=== PATIENT | male | born 1960 | race Caucasian/White ===

== ENCOUNTER 2021-04-02 09:13 | Outpatient (CLI) | payer OTHER, SELFPAY ==
--- NOTE | 2021-04-02 09:18 | EST_ITS ---
Patient Info Name: Billy Damon Age: 60 years : 1960 Gender: Male Ht: 68 in Wt: 242 lbs BSA: 2.34 m2 Technical Quality: Good Exam Date: 04/02/2021 10:07 AM [facility]am [facility] Patient Status: Outpatient Admit Date: 04/02/2021 Staff Ordering Physician: Judson Clemons DO Manager Behavior: Luna Goode RDCS Attending Provider: JUDSON CLEMONS DO Referring Physician: Gage OSUNA; Exercise Technologist: Lisa Gonzales RDCS Exercise Physician: Judson Clemons DO Exam Type: CA stress echo Study Info Indications R07.9 - Chest pain, unspecified Treadmill exercise stress echocardiogram is performed. Summary 1. 1. Negative Haider exercise stress test for ischemic ST changes by ECG criteria. 2. 2. Good functional capacity, achieving 10 METs of workload. 3. 3. Hypertensive response to exercise. 4. 4. Appropriate HR response to exercise. 5. 5. Appropriate HR recovery at 1 minute post exercise. 6. 6. Negative stress echocardiogram for ischemia by wall motion analysis. 7. 7. Patient informed of the above results. Stress Echo Findings Left Ventricle Appropriate increase in LV endocardial thickening with systole. Appropriate augmentation of contractility with systole. No wall motion abnormality. Left Ventricle Normal LV systolic function, no wall motion abnormality. Protocol: Haider Stress ECG Details Stage: REST Duration (min): 11 min : 2 sec Speed (mph): 0.0 Grade (%): 0 HR (bpm): 66 SBP (mmHg): 126 DBP (mmHg): 69 METS: --- Stage: REST Duration (min): 25 min : 9 sec Speed (mph): 0.0 Grade (%): 0 HR (bpm): 72 SBP (mmHg): 126 DBP (mmHg): 69 METS: --- Stage: STAGE 1 Duration (min): 1 min : 0 sec Speed (mph): 1.7 Grade (%): 10 HR (bpm): 91 SBP (mmHg): 126 DBP (mmHg): 69 METS: --- Stage: STAGE 1 Duration (min): 2 min : 0 sec Speed (mph): 1.7 Grade (%): 10 HR (bpm): 98 SBP (mmHg): 126 DBP (mmHg): 69 METS: --- Stage: STAGE 1 Duration (min): 3 min : 0 sec Speed (mph): 1.7 Grade (%): 10 HR (bpm): 101 SBP (mmHg): 174 DBP (mmHg): 73 METS: --- Stage: STAGE 2 Duration (min): 1 min : 0 sec Speed (mph): 2.5 Grade (%): 12 HR (bpm): 110 SBP (mmHg): 174 DBP (mmHg): 73 METS: --- Stage: STAGE 2 Duration (min): 2 min : 0 sec Speed (mph): 2.5 Grade (%): 12 HR (bpm): 112 SBP (mmHg): 174 DBP (mmHg): 73 METS: --- Stage: STAGE 2 Duration (min): 3 min : 0 sec Speed (mph): 2.5 Grade (%): 12 HR (bpm): 117 SBP (mmHg): 174 DBP (mmHg): 73 METS: --- Stage: STAGE 3 Duration (min): 1 min : 0 sec Speed (mph): 3.4 Grade (%): 14 HR (bpm): 137 SBP (mmHg): 211 DBP (mmHg): 99 METS: --- Stage: STAGE 3 Duration (min): 2 min : 0 sec Speed (mph): 3.4 Grade (%): 14 HR (bpm): 141 SBP (mmHg): 211 DBP (mmHg): 99 METS: --- Stage: STAGE 3 Duration (min):
== END 2021-04-02 09:14 | disposition home or self-care (01) ==
LOC: ANHCARD 09:15
PROVIDERS: PCP Internal Medicine; Visit Provider Internal Medicine Cardiovascular Disease
DX: R07.89 Other chest pain (principal)
CPT/HCPCS: 93351